=== PATIENT | female | born 1955 | race Caucasian/White ===

== ENCOUNTER 2017-02-23 22:57 | Emergency (ER) | payer BC ==
[2017-02-23] MEDS ORDERED: FAMOTIDINE 20 MG TABLET PO ONE (23:19)
[2017-02-23] MEDS ORDERED: EPINEPHRINE INJ/PF 1 MG/1 ML AMPULE SUBCUT PRN (23:19)
[2017-02-23] MEDS ORDERED: DIPHENHYDRAMINE HCL 25 MG CAPSULE PO ONE (23:19)
--- NOTE | 2017-02-23 23:19 | ER Document Report ---
ED Allergic Reaction - General Mode of Arrival: Ambulatory Information source: Patient - General Chief Complaint: Allergic Reaction Stated Complaint: POSSIBLE ALLERGIC REACTION Time Seen by Provider: 02/23/17 23:14 Notes: Patient is a 61 year old female presenting to the emergency department for a possible allergic reaction that was onset at 22:00. Patient state she at dinner at Saturday around 18:30. Patient had a normal meal but did try a new dessert, pumpkin cheesecake. Patient states she went to bed around 21:30 and she woke up at 22:00 with itchyness, hives, and swelling to her eyes and throat. Patient took a zyrtec prior to arrival to the ED. Patient states she is feeling somewhat better but is still itchy. Patient states she is allergic to penicillin and Lobster. Patient had a similar event when she ate Lobster in the past. Patient takes Synthroid for her hypothyroidism. (PHOEBE DREW) - Related Data Allergies/Adverse Reactions: shellfish derived Allergy (Verified 02/23/17 23:39) pine pollen Allergy (Uncoded 02/23/17 23:39) Past Medical History - General Information source: Patient - Social History Smoking Status: Former Smoker Cigarette use (# per day): No Chew tobacco use (# tins/day): No Smoking Education Provided: No Frequency of alcohol use: None Drug Abuse: None Family History: None Patient has suicidal ideation: No Patient has homicidal ideation: No Endocrine Medical History: Reports: Hx Hypothyroidism - Synthroid Past Surgical History: Reports: Hx Appendectomy, Hx Hysterectomy, Hx Orthopedic Surgery - ceramic joint replacement of the right 4th PIP joint Review of Systems - Review of Systems Constitutional: No symptoms reported EENT: See HPI, Throat swelling, Other - eye swelling Cardiovascular: No symptoms reported Respiratory: No symptoms reported Gastrointestinal: No symptoms reported Genitourinary: No symptoms reported Female Genitourinary: No symptoms reported Musculoskeletal: No symptoms reported Skin: See HPI, Rash - hives, Other - itchiness Hematologic/Lymphatic: No symptoms reported Neurological/Psychological: No symptoms reported -: Yes All other systems reviewed and negative Physical Exam - Vital signs Vitals: Resp Pulse Ox 15 97 02/23/17 23:24 02/23/17 23:24 - Notes Notes: GENERAL: Alert, interacts well. Mild distress. HEAD: Normocephalic, atraumatic. EYES: Appear normal. Pupils equal, round, and reactive to light. ENT: Moist mucus membranes, tongue midline. No edema to the oropharynx. NECK: Full range of motion. Supple. Trachea midline. LUNGS: Clear to auscultation bilaterally, no wheezes, rales, or rhonchi. No respiratory distress. HEART: Regular rate and rhythm. No murmurs, gallops, or rubs. ABDOMEN: Soft, non-tender. Non-distended. Normal bowel sounds. BACK: Hives and dermatagraphism throughout. EXTREMITIES: Moves all 4 extremities spontaneously. Normal strength. No edema. NEUROLOGICAL: Alert and oriented x3. Normal speech. No focal neurological deficits. GCS 15. PSYCH: Normal affect, normal mood. SKIN: Warm, dry, normal turgor. (PHOEBE DREW) Course - Re-evaluation Re-evalutation: 02/24/17 00:51 Itching his cleared up, patient feels much better. (TON MORENO) - Vital Signs Vital signs: Temp Pulse Resp BP Pulse Ox 17 143/75 H 98 02/23/17 23:28 02/23/17 23:28 02/23/17 23:28 Discharge - Discharge Clinical Impression: Acute allergic reaction Qualifiers: Encounter type: initial encounter Qualified Code(s): T78.40XA - Allergy, unspecified, initial encounter Condition: Stable Disposition: HOME, SELF-CARE Additional Instructions: Acute Allergic Reaction: Your symptoms are due to an allergic reaction. Allergy can cause hives, swelling of the hands, feet, and face, hoarseness, and difficulty swallowing or breathing. It may be due to exposure to medication, animal dander, foods, infection, or insect bites. Medication is a common cause, even when prior use of this same medication caused no problems. Acute treatment may include adrenalin and antihistamines. Usually, the specific allergic agent can't be identified unless repeated episodes occur. Home treatment includes the following: (1) Stop any suspicious medications. This will be discussed with you. (2) Oral antihistamines for the next four to five days. Example, diphenhydramine (Benadryl) every four hours. (3) You may also use cimetidine (Tagamet), ranitidine (Zantac), or famotidine (Pepcid) every four hours if diphenhydramine is not controlling itching and hives. (4) Avoid aspirin until the hives completely disappear. (5) Avoid hot bahs or showers until the hives are completely gone. Call the doctor if faintness, difficulty swallowing, tightness in the chest, or wheezing occurs. Referrals: MARV SNOW MD [Primary Care Provider] - Follow up as needed Scribe Attestation: 02/24/17 00:51 I personally performed the services described in the documentation, reviewed and edited the documentation which was dictated to the scribe in my presence, and it accurately records my words and actions. (TON MORENO) Scribe Documentation - Scribe Written by Scribe:: Blanco Lucio 02/24/2017 00:44 acting as scribe for :: Dianna
[2017-02-23] MEDS ORDERED: PREDNISONE 20 MG TABLET PO ONE (23:55)
[2017-02-24 01:01] VITALS: BP 125/65
== END 2017-02-24 00:50 | disposition home or self-care (01) ==
LOC: ER 22:57
DX: T78.40XA Allergy, unspecified, initial encounter (principal); L29.9 Pruritus, unspecified; X58.XXXA Exposure to other specified factors, initial encounter; E03.9 Hypothyroidism, unspecified; Z87.891 Personal history of nicotine dependence; Z91.013 Allergy to seafood; Z90.710 Acquired absence of both cervix and uterus
CPT/HCPCS: 99283; 96372; J0171; J7512